=== PATIENT | male | born 1980 | race Caucasian/White ===

== ENCOUNTER 2016-11-29 20:35 | Emergency (ER) | payer BC ==
--- NOTE | 2016-11-29 21:09 | ERNOTE ---
Medical Problem HPI - General Chief Complaint: General Assessment Time Seen by Provider: 11/29/16 20:50 Source: patient Exam Limitations: no limitations - Immun/Allergies/Home Medications Immunizations: IMMUNIZATION HX Immunizations Up to Date Yes History of Influenza Vaccine No Allergies/Adverse Reactions: Allergies No Known Allergies Allergy (Unverified 11/29/16 20:45) Home Medications: HOME MEDICATIONS NK [No Home Medication] 11/29/16 [Last Taken Unknown] - History of Present History Narrative: Pt has had a couple of lumps in his skin for 1-2 years and will be loosing insurance soon and wants them looked at Timing: constant Severity: mild Review of Systems - Review of Systems Constitutional: Present: no symptoms reported EYE: Present: no symptoms reported ENT: Present: no symptoms reported Musculoskeletal: Absent: back pain, muscle pain Skin: Present: See HPI Neurological: Absent: numbness, tingling Hematologic/Lymphatic: Absent: easy bruising, easy bleeding - Patient's Past Medical History Patient History - Medical: No pertinent hx Patient History - Cardiac/Respiratory: No pertinent hx Patient History - Cancer: No Hx of Cancer Patient History - Surgical Procedures: Appendectomy, Cholecystectomy, ENT Patient History - Other: None - Social History Living Situations: alone Abuse History: No History of abuse Psych History: No pertinent hx Smoking Status: Current every day smoker Have you smoked in the past 12 months: Yes Do you dip or chew tobacco: No Alcohol Use: rarely Drug Use: none - Immunizations Immunizations Up to Date: Yes History of Influenza Vaccine: No Physical Exam - Physical Exam General Appearance: Present: wd/wn, alert, no apparent distress Head Exam: Present: normal inspection, no evidence of injury Eye Exam: Normal inspection: bilateral Neck: Present: normal inspection, nontender Respiratory: Present: no respiratory distress, no accessory muscle use Back Exam: Present: normal inspection, no vertebral tenderness Extremity Exam: Present: normal inspection, non-tender, no edema Neurological Exam: Present: alert, oriented, normal mood/affect, no motor/ sensory deficits Skin Exam: Present: normal color, warm/dry, other - somewhat soft irregular subcutanteous mass approx 1 cm in diameter in the lateral right upper arm just below the deltoid. No erythema, no induration, no surface changes in the skin. 1 cm round smooth, firm subcutaneous lesion ED Progress - Vital Signs Vital Signs: Vital Signs 11/29/16 20:40 Temperature 37.1 C Pulse Rate 77 Respiratory 14 Rate Blood Pressure 158/80 O2 Sat by Pulse 98 Oximetry - Progress/Reassessment Chief Complaint: General Assessment Departure - Departure Clinical Impression: Sebaceous cyst Lipoma Qualifiers: Lipoma location: upper extremity Laterality: right Qualified Code(s): D17.21 - Benign lipomatous neoplasm of skin and subcutaneous tissue of right arm Disposition: Home Follow Up Needed Condition: Good Additional Instructions: the lesions you have are likely benign. You should get them further evaluated and possibly biopsied to be sure. The one on your back may respond to warm packs 3-4 times a day for a few weeks. I suggest that you establish with a primary care physician and have further testing
[2016-11-29 21:20] VITALS: BP 144/72
== END 2016-11-29 21:18 | disposition home or self-care (01) ==
LOC: ER 20:35
DX: L72.3 Sebaceous cyst (principal); D17.21 Benign lipomatous neoplasm of skin and subcutaneous tissue of right arm; F17.200 Nicotine dependence, unspecified, uncomplicated